=== PATIENT | female | born 1965 | race Caucasian/White ===

== ENCOUNTER 2021-08-19 08:02 | Emergency (ER) | payer OTHER ==
[~2021-08-19 08:02] MED LIST: HCTZ25 MG PO; LEVAQUIN750 MG PO; METRONIDAZOLE500 MG PO; PLAQUENIL200 MG PO; SYNTHROID25 MCG PO; VITAMIN D1000 UNI1 PO; ZOFRAN ODT4 MG PO
[2021-08-19 08:48] LABS: BASOPHIL 0.8 % (0-2); EOSINOPHIL 1.8 % (0-5); HCT 38.9 % (37.0-47.0); HGB 13.3 g/dl (12.5-16.0); LYMPHOCYTE 15.4 % (15-48); MCH 31.2 pg (25.0-31.0); MCHC 34.2 g/dL (32.0-36.0); MCV 91.3 fL (78.0-100.0); MONOCYTE 10.3 % (0-12); MPV 10.4 fL (6.0-9.5); NEUTROPHIL 71.4 % (41-80); NRBC 0; PLT 243 K/uL (150-400); RBC 4.26 M/uL (4.20-5.40); RDW 13.2 % (11.5-14.0); WBC 7.1 K/uL (4.0-10.5)
[2021-08-19 08:53] LABS: INR 1.17 (0.9-1.2); PROTHROMBIN TIME 14.3 SECONDS (11.8-13.4)
[2021-08-19 09:13] LABS: ALBUMIN 4.2 g/dL (3.4-5.0); BILIRUBIN - TOTAL 0.4 mg/dL (0.2-1.0); BUN/CREAT RATIO (CALC) 15.2 RATIO; CREATININE 1.38 mg/dL (0.51-0.95); GLOBULIN (CALCULATION) 4.3 g/dL; POTASSIUM 4.3 mmol/L (3.5-5.1); TOTAL PROTEIN 8.5 g/dL (6.4-8.2)
[2021-08-19 13:04] LABS: BILIRUBIN NEGATIVE (NEGATIVE); BLOOD NEGATIVE Ery/uL (NEGATIVE); CLARITY CLEAR (CLEAR); COLOR YELLOW (YELLOW); GLUCOSE (U) NORMAL (NORMAL); LEUKOCYTES TRACE Leu/uL (NEGATIVE); NITRITE NEGATIVE (NEGATIVE); PROTEIN NEGATIVE (NEGATIVE); SPECIFIC GRAVITY <=1.005 (1.001-1.030); UROBILINOGEN 0.2 mg/dL (0.2-1.0)
[2021-08-19 13:11] LABS: BACTERIA 1+; SQUAMOUS EPITHELIAL CELLS 20-50
[2021-08-19 13:12] LABS: AMORPHOUS URATES CRYSTALS TRACE
== END 2021-08-19 11:55 | disposition home or self-care (01) ==
LOC: FER 08:02
PROVIDERS: Emergency Medicine
DX: R55 Syncope and collapse (principal); N17.9 Acute kidney failure, unspecified; I10 Essential (primary) hypertension; F17.290 Nicotine dependence, other tobacco product, uncomplicated; Z88.5 Allergy status to narcotic agent; Z88.7 Allergy status to serum and vaccine; Z79.899 Other long term (current) drug therapy
CPT/HCPCS: 36415; 70450; 71045; 72125; 80053; 81001; 82553; 83605; 84443; 84484; 85025; 85610; 85730; J7030